=== PATIENT | male | born 1985 | race Caucasian/White ===

== ENCOUNTER → 2018-11-13 | Outpatient (CLI) | payer OTHER ==
[~2018-11-13] MED LIST: NONE PER PT
[2018-11-13 10:55] LABS: MICROSCOPIC NOT IND
[2018-11-13 10:56] LABS: BASOPHILS # (AUTO) 0.03 x10^3/uL (0-0.1); BASOPHILS % (AUTO) 1 % (0-1); CULTURE INDICATED? NO; EOSINOPHILS # (AUTO) 0.08 x10^3/uL (0-0.4); EOSINOPHILS % (AUTO) 1 % (1-7); LYMPHOCYTES # (AUTO) 2.35 x10^3/uL (1-3.4); LYMPHOCYTES % (AUTO) 39 % (22-44); MD NO; MEAN CORPUSCULAR HEMOGLOBIN 30.7 pg (27.5-34.5); MEAN CORPUSCULAR HGB CONC 33.4 g/dL (33.2-36.2); MEAN PLATELET VOLUME 8.6 fL (7.4-10.4); MONOCYTES # (AUTO) 0.51 x10^3/uL (0.2-0.8); MONOCYTES % (AUTO) 9 % (2-9); NEUTROPHILS # (AUTO) 3.04 x10^3/uL (1.8-6.8); NEUTROPHILS % (AUTO) 51 % (42-75); PLATELET COUNT 217 x10^3/uL (130-400); RED BLOOD COUNT 5.63 x10^6/uL (4.38-5.82); RED CELL DISTRIBUTION WIDTH 12.8 % (9.4-14.8)
[2018-11-13 11:04] LABS: INTERNATIONAL NORMALIZED RATIO 1.1 (0.93-1.1); PROTHROMBIN TIME 11.5 Seconds (9.6-11.5)
[2018-11-13 11:06] LABS: ANION GAP 4 mmol/L (5-15); CHLORIDE 110 mmol/L (98-107); CREATININE 1.06 mg/dL (0.7-1.3)
== END | disposition home or self-care (01) ==
LOC: STAR 10:08
PROVIDERS: ATTEND Neurological Surgery
DX: Z01.818 Encounter for other preprocedural examination (principal); M50.30 Other cervical disc degeneration, unspecified cervical region
CPT/HCPCS: 36415; 71046; 80048; 81003; 85025; 85610; 85730; 93005

== ENCOUNTER 2018-11-28 05:59 | Observation (INO) | payer OTHER ==
[~2018-11-28] VITALS: Ht 190.5 cm; Wt 103.0 kg
[2018-11-28] MEDS ORDERED: BACITRACIN 50,000 UNIT ONE (07:12)
[2018-11-28] MEDS ORDERED: THROMBIN 20,000 UNIT VIAL TP ONE (07:12)
[2018-11-28] MEDS ORDERED: BUPIVACAINE/EPI 0.5% 1:200K ONE (07:12)
[2018-11-28 07:27] VITALS: BP 144/84
[2018-11-28] MEDS ORDERED: FENTANYL PF 250 MCG/5ML ONE ×2 (07:40→08:36)
[2018-11-28] MEDS ORDERED: MIDAZOLAM 1 MG/ML, 2ML ONE (07:40)
[2018-11-28] MEDS ORDERED: ROCURONIUM 10MG/ML,5ML ONE (07:44)
[2018-11-28] MEDS ORDERED: SUCCINYLCHOLINE 20 MG/ML, 10ML ONE (07:45)
[2018-11-28] MEDS ORDERED: LIDOCAINE 2%, 6 ML JEL.PF.APP MM ONE (07:50)
[2018-11-28] MEDS ORDERED: PROPOFOL 50 ML ONE ×3 (07:51→09:45)
[2018-11-28] MEDS ORDERED: LIDOCAINE-MPF 2% ,5ML ONE ×3 (07:52→10:13)
[2018-11-28] MEDS ORDERED: DEXAMETHASONE 4 MG/ML, 1ML ONE ×3 (07:54)
[2018-11-28] MEDS ORDERED: KETAMINE 10 MG/ML, 20ML ONE (08:08)
[2018-11-28] MEDS ORDERED: FENTANYL PF 100 MCG/2ML IV PRN (09:00)
[2018-11-28] MEDS ORDERED: HYDROmorphone 2 MG/ML, 1ML IVPush PRN ×2 (09:00→11:00)
[2018-11-28] MEDS ORDERED: PROMETHAZINE 25 MG/ML, 1ML IV PRN (09:00)
[2018-11-28] MEDS ORDERED: MEPERIDINE/PF 25MG/0.5ML IVPush PRN (09:00)
[2018-11-28] MEDS ORDERED: hydrALAzine 20 MG/ML, 1ML IV PRN (09:00)
[2018-11-28] MEDS ORDERED: ONDANSETRON ODT 8 MG PO PRN (09:00)
[2018-11-28] MEDS ORDERED: HALOPERIDOL 5 MG/ML IV PRN (09:00)
[2018-11-28] MEDS ORDERED: ACETAMINOPHEN 325 MG TABLET PO PRN (09:00)
[2018-11-28] MEDS ORDERED: OXYcodone 5 MG/5 ML ORAL.SOL UDC PO PRN (09:00)
[2018-11-28] MEDS ORDERED: MORPHINE SULFATE 4 MG/ML, 1ML IVPush PRN (09:00)
[2018-11-28] MEDS ORDERED: EPHEDRINE 50 MG/ML, 1ML IVPush PRN (09:00)
[2018-11-28] MEDS ORDERED: ALBUTEROL SULFATE 2.5 MG/3 ML NPPB PRN (09:00)
[2018-11-28] MEDS ORDERED: ONDANSETRON 2MG/ML, 2ML IV PRN (09:00)
[2018-11-28] MEDS ORDERED: PROMETHAZINE 12.5 MG SUPP PR PRN (09:00)
[2018-11-28] MEDS ORDERED: MIDAZOLAM 1 MG/ML, 2ML IV PRN (09:00)
[2018-11-28] MEDS ORDERED: LABETALOL 5MG/ML, 20ML IV PRN (09:00)
[2018-11-28] MEDS ORDERED: DIAZEPAM 5 MG/ML, 2ML IVPush PRN (09:00)
[2018-11-28] MEDS ORDERED: BUPIVACAINE/EPI 0.5% 1:200K INFIL ONE (09:11)
[2018-11-28] MEDS ORDERED: ONDANSETRON 2MG/ML, 2ML ONE ×2 (10:17)
[2018-11-28] MEDS ORDERED: SCOPOLAMINE PATCH, 1.5MG PATCH.TD72 TD ONE ×2 (10:30→10:41)
[2018-11-28] MEDS: NS + 20MEQ KCL 1,000 ML IV SCH ×3 (11:00→19:38)
[2018-11-28] MEDS ORDERED: MAGNESIUM HYDROXIDE 8%, 30ML UDC PO PRN (11:00)
[2018-11-28] MEDS ORDERED: ONDANSETRON 2MG/ML, 2ML IVPush PRN (11:00)
[2018-11-28] MEDS ORDERED: PHARMACY MAY ADJ FOR RENAL FX MC PRN (11:00)
[2018-11-28] MEDS ORDERED: BISACODYL 10 MG SUPP PR PRN (11:00)
[2018-11-28] MEDS ORDERED: PROMETHAZINE 25 MG/ML, 1ML IM PRN (11:00)
[2018-11-28] MEDS ORDERED: DIPHENHYDRAMINE 50 MG/ML, 1ML IVPush PRN (11:00)
[2018-11-28] MEDS ORDERED: OXYC1TAB7 PO (11:02)
[2018-11-28] MEDS ORDERED: METH750T2 PO (11:02)
[2018-11-28] MEDS ORDERED: ACETAMINOPHEN 650 MG/20.3 ML UDC ONE (11:27)
[2018-11-28] MEDS ORDERED: OXYcodone 5 MG/5 ML ORAL.SOL UDC ONE (11:27)
[2018-11-28] MEDS ORDERED: METHOCARBAMOL 1,000 MG in DEXTROSE 5% 100 ML IV ONE (11:30)
[2018-11-28 12:00] VITALS: BP 145/93
[2018-11-28] MEDS: OXYcodone/APAP 5/325MG TABLET PO PRN ×3 (14:42→23:32)
[2018-11-28] MEDS: CEFAZOLIN PMX 1GM/50ML 50 ML IVPB SCH ×2 (16:49→17:33)
[2018-11-28] MEDS: METHOCARBAMOL 750 MG TABLET PO PRN (18:16)
[2018-11-28 18:59] VITALS: BP 123/79
[2018-11-28] MEDS: SODIUM CHLORIDE FLUSH 10ML SYR IVF SCH (19:38)
[2018-11-29 00:21] VITALS: BP 139/75
[2018-11-29] MEDS: METHOCARBAMOL 750 MG TABLET PO PRN ×2 (02:07→10:20)
[2018-11-29 05:18] VITALS: BP 115/65
[2018-11-29] MEDS: OXYcodone/APAP 5/325MG TABLET PO PRN ×3 (06:30→10:26)
[2018-11-29 08:17] VITALS: BP 124/74
[2018-11-29] MEDS: SODIUM CHLORIDE FLUSH 10ML SYR IVF SCH (08:40)
[2018-11-29] MEDS ORDERED: SENNA/DOCUSATE TABLET PO SCH (09:00)
[2018-11-29 10:50] VITALS: BP 122/68
== END 2018-11-29 10:55 | disposition home or self-care (01) ==
LOC: OR 05:59 → 4NOR 06:43 → OR 10:31 → 4NOR 10:31
PROVIDERS: ADMIT Neurological Surgery; ATTEND Neurological Surgery
DX: M50.023 Cervical disc disorder at C6-C7 level with myelopathy (principal); M50.123 Cervical disc disorder at C6-C7 level with radiculopathy; M43.6 Torticollis; M25.78 Osteophyte, vertebrae
CPT/HCPCS: 22856; 72040; 95938; 95941; 96365; C1776; G0378; J0330; J0690; J1100; J2250; J2405; J2704; J2800; J3010; J3490